=== PATIENT | male | born 1960 | race Caucasian/White ===

== ENCOUNTER 2021-11-08 05:49 | Inpatient (IN) ==
[2021-11-08] MEDS ORDERED: Ipratropium/Albuterol Neb 3 ML IH ONE (06:20)
[2021-11-08] MEDS ORDERED: Ondansetron 4 MG/2 ML VIAL IVP PRN ×2 (06:21→21:04)
[2021-11-08] MEDS ORDERED: Albuterol 2.5 MG/3 ML NEBULIZER IH PRN (06:21)
[2021-11-08] MEDS ORDERED: *HR* Propofol 200 MG/20 ML VIAL IVP ONE (06:25)
[2021-11-08] MEDS ORDERED: *HR* FentaNYL (PF) 100 MCG/2 ML VIAL ONE (06:25)
[2021-11-08] MEDS ORDERED: *HR* Midazolam HCl 2 MG/2 ML VIAL ONE (06:25)
[2021-11-08] MEDS ORDERED: *HR* Remifentanil 2 MG VIAL IVP ONE (06:25)
[2021-11-08] MEDS ORDERED: CeFAZolin Syr 2,000MG/20 ML 2,000 MG/20 ML SYRINGE IVPB ONE (06:34)
[2021-11-08] MEDS ORDERED: Ringers Solution, Lactated 1,000 ML IVC SCH (06:45)
[2021-11-08] MEDS ORDERED: Famotidine 20 MG TABLET PO ONE (07:00)
[2021-11-08] MEDS ORDERED: Pregabalin 75 MG CAPSULE PO ONE (07:00)
[2021-11-08] MEDS: tiZANidine 4 MG TABLET PO SCH ×4 (07:02→20:35)
[2021-11-08] MEDS ORDERED: Dexmedetomidine HCl 400 MCG/100 ML MLS IVC ONE (07:27)
[2021-11-08] MEDS ORDERED: *HR* Phenylephrine 10 MG/ML VIAL ONE (07:51)
[2021-11-08] MEDS ORDERED: Lidocaine HCL 4 ML Topical Solution (Laryng-O-Jet Kit Sterile Pak) TP ONE (07:51)
[2021-11-08] MEDS ORDERED: *HR* Succinylcholine 200 MG/10 ML VIAL IVP ONE (07:51)
[2021-11-08] MEDS ORDERED: Ondansetron 4 MG/2 ML VIAL ONE ×2 (07:51→10:39)
[2021-11-08] MEDS ORDERED: Lidocaine -MPF 2% 2 ML VIAL ONE (07:51)
[2021-11-08] MEDS ORDERED: Polymyxin B Sulfate 500,000 UNIT, Sodium Chloride IRRigation 1,000 ML IR ONE (08:15)
[2021-11-08] MEDS ORDERED: Heparin 1,000 UNITS/500 mL 500 ML ONE (08:16)
[2021-11-08] MEDS ORDERED: EPHEDrine 50 MG/ML VIAL ONE (08:42)
[2021-11-08] MEDS ORDERED: *HR* Remifentanil 1 MG VIAL IVP ONE (10:53)
[2021-11-08] MEDS: *HR* FentaNYL (PF) 100 MCG/2 ML VIAL IVP PRN ×4 (12:22→12:37)
[2021-11-08] MEDS: *HR* HYDROmorphone PF 0.5 MG/0.5 ML SYRINGE IVP PRN ×2 (12:43→12:49)
[2021-11-08] MEDS ORDERED: *HR* OxyCODONE Immed Rel 5 MG TABLET PO PRN (17:14)
[2021-11-08] MEDS ORDERED: Naloxone 0.4 MG/ML INJ IVP PRN (21:04)
[2021-11-08] MEDS ORDERED: Acetaminophen 325 MG TABLET PO PRN (21:04)
[2021-11-08] MEDS: Ringers Solution, Lactated 1,000 ML IVC SCH (21:19)
[2021-11-08] MEDS: CeFAZolin 2 GM/120 ML BAG IVPB SCH (23:33)
[2021-11-09] MEDS: Ringers Solution, Lactated 1,000 ML IVC SCH (06:12)
[2021-11-09] MEDS: CeFAZolin 2 GM/120 ML BAG IVPB SCH (08:42)
[2021-11-09] MEDS ORDERED: amLODIPine 5 MG TABLET PO SCH (09:00)
[2021-11-09] MEDS ORDERED: Metoprolol 100 MG TABLET PO SCH (09:00)
[2021-11-09] MEDS ORDERED: Aspirin 81 MG TAB.CHEW PO SCH (09:00)
[2021-11-09] MEDS ORDERED: tiZANidine 4 MG TABLET PO SCH (09:00)
[2021-11-09 10:26] VITALS: BP 126/77; PULSE 59; TEMP 97.7; O2SAT 95
== END 2021-11-09 14:48 | disposition home or self-care (01) | DRG 472 ==
LOC: SDCAOSI 05:49 → 4WAOSI 13:53
PROVIDERS: ADMIT Orthopaedic Surgery Orthopaedic Surgery of the Spine; ATTEND Orthopaedic Surgery Orthopaedic Surgery of the Spine